=== PATIENT | female | born 1965 | race African-American/Black ===

== ENCOUNTER 2017-07-23 09:23 | Emergency (ER) | payer MEDICARE, OTHER ==
[~2017-07-23 09:23] MED LIST: ASAB PO; DENIES MEDS
== END 2017-07-23 11:00 | disposition home or self-care (01) ==
LOC: ER 09:23
DX: K04.7 Periapical abscess without sinus (principal); Z79.82 Long term (current) use of aspirin; Z88.8 Allergy status to other drugs, medicaments and biological substances
CPT/HCPCS: 99283